=== PATIENT | male | born 1995 | race Native Hawaiian/Other Pacific Islander ===

== ENCOUNTER → 2017-06-16 | Outpatient (CLI) | payer OTHER ==
[~2017-06-16] MED LIST: CONRAY-43 43% 50ML VIAL (Q9960) As Ordered ONE
--- NOTE | 2017-06-16 10:07 | REP ---
RIGHT HIP ARTHROGRAM: The procedure was performed by VIRGIE Ogden, under the direct supervision of Dr. Segura. The procedure along with its risks, benefits and complications were discussed with the patient prior to the examination. Informed consent was obtained both verbally and written. The right femoral neck was localized using fluoroscopic guidance. The skin was marked, prepped and draped in the usual sterile fashion. A procedural time out was performed to ensure that the correct patient, site and procedure were being performed. 1% lidocaine was used to achieve local anesthetic. Under fluoroscopic guidance, a 22-gauge spinal needle was inserted and advanced to the femoral neck. 0.5 mL of Conray 60 were injected to verify placement. 11 mL of a solution containing 20 mL of sterile saline and 0.15 mL of Gadolinium were injected into the joint space. The needle was then removed and the patient was taken to MRI for post procedural imaging. The patient tolerated the procedure well and had no immediate complications. Fluoroscopy time of 5 seconds. Reviewed by VIRGIE Jean Baptiste 06/16/2017 11:08 AEdited and Signed by Eris Segura MD 06/16/2017 08:00 P
--- NOTE | 2017-06-16 11:21 | REP ---
MR ARTHROGRAM RIGHT HIP: TECHNIQUE: Coronal T1, STIR through the pelvis, post arthrogram axial T1 fat sat, T2 fat sat, coronal T1 fat sat, T2 fat sat, sagittal T1 fat sat, axial oblique T1 fat sat right hip. The visualized osseous structures demonstrate normal marrow signal with no bone marrow edema or occult fracture. There is no evidence of avascular necrosis. On the post arthrogram images, there is evidence of a focal tear at the anterior superior corner of the right hip labrum. This is seen on the sagittal images. There is no other evidence of a labral tear. No paralabral cyst is seen. There is no joint effusion. There is mild ill-defined high signal along the greater trochanters and bilateral femurs suggesting minimal bilateral greater trochanteric tendinobursitis. Visualized intrapelvic structures appear unremarkable. No other abnormalities are seen. IMPRESSION: Focal tear anterior superior corner of the right hip labrum. Minimal bilateral greater trochanteric tendinobursitis. Signed by Eris Segura MD 06/16/2017 07:51 P
== END ==
LOC: M RADPRO 07:14
PROVIDERS: ATTEND Physician Assistant
DX: M24.151 Other articular cartilage disorders, right hip (principal); M70.61 Trochanteric bursitis, right hip
CPT/HCPCS: 27093; 73723; 77002; A9576; Q9960

== ENCOUNTER → 2017-07-05 | Outpatient (CLI) | payer OTHER ==
[~2017-07-05] MED LIST changes: +LIDOCAINE 1% MDV 20ML VIAL As Ordered ONE; +TRIAMCINOLONE ACETONIDE SUSP 40 MG/ML VIAL (J3301) As Ordered ONE
--- NOTE | 2017-07-06 07:25 | REP ---
Right hip injection The procedure was performed under the direct supervision of Dr. Segura. The benefits and risks including but not limited to pain infection and bleeding and anaphylaxis were explained to the patient and informed consent was obtained. The right femoral neck was localized using fluoroscopic guidance. The skin was prepped and draped in a sterile fashion. 1% lidocaine was used as a local anesthetic. Using fluoroscopic guidance a 22-gauge spinal needle was inserted and advanced to the femoral neck. 0.5 ml of Conray 43 was injected to verify placement. 10 ml of a solution containing 9 ml of 1% Xylocaine and 1 ml of Kenalog 40 mg was injected. The needle was then removed. The patient tolerated the procedure well and there were no immediate complications. One second of fluoro time was utilized for this procedure. Reviewed by VIRGIE Lynn 07/05/2017 04:13 PSigned by Eris Segura MD 07/05/2017 07:31 P
== END ==
LOC: M RADPRO 12:35
DX: M24.151 Other articular cartilage disorders, right hip (principal)
CPT/HCPCS: 20610; 77002; J3301; Q9960